=== PATIENT | female | born 1940 | race Two or more races ===

== ENCOUNTER 2023-01-22 05:26 | Day surgery (SDC) | payer OTHER ==
[2023-01-16 13:02] VITALS: BMI 25.4
[2023-01-22] MEDS ORDERED: LIDOCAINE HCL 1%, 10 MG/ML (20ML VIAL) NR ONE ×2 (12:43→13:18)
[2023-01-22] MEDS ORDERED: ceFAZolin SODIUM 1 GM VIAL IVPB ONE ×3 (12:43→13:08)
[2023-01-22] MEDS ORDERED: HEPARIN NA (PORCINE) 5,000 UNITS/ML 1ML VIAL SQ ONE ×2 (12:43→13:22)
[2023-01-22] MEDS ORDERED: MIDAZOLAM HCL 2 MG/2 ML SINGLE DOSE VIAL ONE ×2 (13:06→13:46)
[2023-01-22] MEDS ORDERED: ceFAZolin SODIUM 1 GM VIAL ONE (13:06)
[2023-01-22] MEDS ORDERED: HEPARIN NA (PORCINE) 5,000 UNITS/ML 1ML VIAL ONE (13:19)
[2023-01-22] MEDS ORDERED: oxyCODONE HCL 5 MG TABLET PO PRN (14:18)
[2023-01-22] MEDS ORDERED: CLOPIDOGREL BISULFATE 75 MG TABLET (FP) PO ONE ×2 (14:34→14:44)
[2023-01-22] MEDS ORDERED: CLOPIDOGREL BISULFATE 75 MG TABLET (FP) ONE (14:41)
[2023-01-22 16:44] VITALS: PULSE 65; RESP 18
[2023-01-22 18:14] VITALS: BP 103/51; TEMP 97.7
== END 2023-01-22 17:04 | disposition home or self-care (01) ==
LOC: JASU-SURG 05:26
PROVIDERS: ATTEND Surgery Vascular Surgery
PROC: 047T3ZZ Dilation of Right Peroneal Artery, Percutaneous Approach (ICD-10-PCS; 2023-01-22)
PROC: B41DYZZ Fluoroscopy of Aorta and Bilateral Lower Extremity Arteries using Other Contrast (ICD-10-PCS; 2023-01-22)
PROC: 047P3ZZ Dilation of Right Anterior Tibial Artery, Percutaneous Approach (ICD-10-PCS; principal; 2023-01-22 13:30)
DX: E11.621 Type 2 diabetes mellitus with foot ulcer (principal); E11.51 Type 2 diabetes mellitus with diabetic peripheral angiopathy without gangrene; I70.292 Other atherosclerosis of native arteries of extremities, left leg
CPT/HCPCS: 36247; 37229; 75710; C1725; 76000-TC-FY; 94760; C1760; C1769; J1644